=== PATIENT | male | born 1955 | race Caucasian/White ===

== ENCOUNTER 2018-04-04 11:06 | Inpatient (IN) | payer MEDICARE, OTHER ==
[~2018-04-04] VITALS: Ht 182.9 cm; Wt 94.3 kg
[2018-04-04] MEDS ORDERED: MAG HYDROX/AL HYDROX/SIMETH 30 ML UDC PO PRN (11:30)
[2018-04-04] MEDS ORDERED: ACETAMINOPHEN 325 MG TABLET PO PRN (11:30)
[2018-04-04] MEDS ORDERED: MAGNESIUM HYDROXIDE 30 ML UDC PO PRN (11:30)
[2018-04-04] MEDS ORDERED: LISD50CA2 PO (11:33)
[2018-04-04] MEDS ORDERED: GABA-536 PO (11:33)
[2018-04-04] MEDS ORDERED: MULT-24 PO (11:33)
[2018-04-04] MEDS ORDERED: ALPR2TAB7 PO (11:33)
[2018-04-04 11:52] VITALS: BP 143/89
--- NOTE | 2018-04-04 12:08 | NUR ---
GPS ADMITTING NOTE: PT 63 Y/O MALE ADMITTED FROM [facility] ON 5150 HOLD FOR DANGER TO SELF, PER HOLD PT INTENTIONAL OVERDOSE IN A SUICIDE ATTEMPT AND WAS INTUBATED. PT WAS RECENTLY GIVEN AN EVICTION NOTE BY HIS NOW EX GIRLFRIEND, PT REPORT SEVERE DEPRESSION .UPON PER FACE TO FACE ASSESSMENT PT A/O X4, AMBULATORY SELF CARE, RESTLESS, HYPERVERBAL,DENIES SI/HI AT THIS TIME NO C/O PAIN . PT HAS HX OF BIPOLAR , DYSLEXIA , ADD, DEPRESSION . PT REFUSED SKIN ASSESSMENT AND PICTURES TAKEN , BY REPORT PT HAS LACERATION ON THE BACK OF HIS HEAD , WOUND CONSUL TRIGGERED, MRSA DONE . ALL BELONGINGS AND VALUABLES CHECKED AND PLACED IN THE SAFE. PT HAS HEARING AIDS WITH HIM. WILL CONTINUE MONITORING FOR SAFETY AND BEHAVIOR Q 15 MIN.
[2018-04-04 16:00] VITALS: BP 141/90
[2018-04-04] MEDS: GABAPENTIN 300 MG CAPSULE PO SCH (17:19)
[2018-04-04] MEDS: LORAZEPAM 0.5 MG TABLET PO PRN (19:08)
--- NOTE | 2018-04-04 19:08 | NUR ---
VERBALIZED FEELING OF ANXIETY, ATIVAN 1 MG TAB PO GIVEN.
[2018-04-04 20:00] VITALS: BP 140/93
[2018-04-04] MEDS: ZOLPIDEM TARTRATE 5 MG TABLET PO PRN (21:40)
--- NOTE | 2018-04-04 21:41 | NUR ---
C/O INSOMNIA, AMBIEN 5 MG TAB 1 PO GIVEN.
[2018-04-05] MEDS: LORAZEPAM 0.5 MG TABLET PO PRN ×2 (02:20→20:46)
--- NOTE | 2018-04-05 02:20 | NUR ---
PATIENT STILL HAVING A HARD TIME TO SLEEP, ATIVAN 1 MG TAB PO GIVEN.
[2018-04-05 07:16] LABS: ALBUMIN 3.2 g/dL (3.4-5.0); BILIRUBIN,TOTAL 0.3 mg/dL (0.2-1.0); CALCIUM, SERUM 8.7 mg/dL (8.5-10.1); CREATININE 0.8 mg/dL (0.6-1.3); POTASSIUM 3.7 mmol/L (3.5-5.1); TOTAL PROTEIN, SERUM 7.3 g/dL (6.4-8.2)
[2018-04-05 08:00] VITALS: BP 154/94
[2018-04-05] MEDS: GABAPENTIN 300 MG CAPSULE PO SCH ×3 (09:43→18:09)
[2018-04-05] MEDS: ESCITALOPRAM OXALATE (10 MG) 10 MG TABLET PO SCH (09:43)
[2018-04-05 16:02] VITALS: BP 157/96
[2018-04-05 19:58] VITALS: BP 168/96
--- NOTE | 2018-04-05 20:46 | NUR ---
GPS-RN PATIENT IS ANXIOUS, RESTLESS AND PACING IN AND OUT OF HIS ROOM. ADMINISTERED ATIVAN 1MG PO ORDERED. WILL CONTINUE TO MONITOR Q15MIN FOR SAFETY AND BEHAVIOR.
[2018-04-05] MEDS: ZOLPIDEM TARTRATE 5 MG TABLET PO PRN (22:21)
[2018-04-06] MEDS: GABAPENTIN 300 MG CAPSULE PO SCH ×4 (08:31→20:02)
[2018-04-06] MEDS: ESCITALOPRAM OXALATE (10 MG) 10 MG TABLET PO SCH (08:31)
[2018-04-06 16:00] VITALS: BP 144/100
[2018-04-06] MEDS: LORAZEPAM 0.5 MG TABLET PO PRN (18:00)
--- NOTE | 2018-04-06 18:00 | NUR ---
rn note:patient medicated with ativan for anxiety will continue to monitor .
[2018-04-06 19:33] VITALS: BP 157/94
[2018-04-06] MEDS: ZOLPIDEM TARTRATE 5 MG TABLET PO PRN (21:52)
[2018-04-07] MEDS: ESCITALOPRAM OXALATE (10 MG) 10 MG TABLET PO SCH (08:06)
[2018-04-07] MEDS: LORAZEPAM 0.5 MG TABLET PO PRN (08:06)
[2018-04-07] MEDS: GABAPENTIN 300 MG CAPSULE PO SCH ×4 (08:07→21:55)
[2018-04-07 08:08] VITALS: BP 144/79
--- NOTE | 2018-04-07 10:05 | NUR ---
INITIAL DISCHARGE PLAN: Patient wishes to be discharged to his sisters Wayne's [phone] [facility] [address]. SW confirmed with Wayne who stated she would also be transporting pt home and had already scheduled follow up appointments with pts psychiatrist and appraiser real estate. SW will help form a safe and proper discharge in collaboration with .
--- NOTE | 2018-04-07 13:43 | NUR ---
WOUND CARE CONSULT: PT PRESENTS WITH AARON TO BACK OF HEAD, NO DRAINAGE OR TENDERNESS AND ALSO DRY SCAB TO RT ELBOW, PRESENT ON ADMISSION. PT IS AMBULATORY AND CONTINENT. RECOMMEND MD FOLLOWUP OF AARON. WILL SEE PRN.
[2018-04-07] MEDS: LORAZEPAM 1 MG TABLET PO PRN (14:42)
--- NOTE | 2018-04-07 14:45 | NUR ---
NURSING NOTE PT ANXIOUS, AGITATED, YELLING, REQUESTING ATIVAN PO, STATING DR. SHIPMAN CHANGED ATIVAN 1MG PO Q8H TO ATIVAN 1MG PO Q6H. CALLED DR. SHIPMAN AND GOT ORDER FOR ATIVAN 1MG PO Q6H. PT VERY AGITATED STATED HE WANTS THE ATIVAN RIGHT NOW, PER [employer] SHRAVAN SHELL TO GIVE PT ATIVAN 1MG PO (2 TABS OF 0.5MG EACH, TOTAL 1MG) BEFORE SCANNING MEDICATION. PHARMACY WAS CALLED DUE TO SYSTEM NOT ALLOWING ME TO SCAN ATIVAN 1MG (2 TABS OF 0.5MG EACH, TOTAL 1MG) UNDER NEW ORDER SINCE MEDICATION WAS PULLED UNDER OLD ORDER. PER CLOVIS FROM PHARMACY, OKAY TO PULL ANOTHER ATIVAN 1MG PO FROM Q6H ORDER AND SCAN IT. THEN I RETURNED ATIVAN 1MG (1MG WHOLE PILL) UNDER THE ATIVAN 1MG PO Q8H ORDER (2 TABS 0.5MG, TOTAL 1MG). DUE TO SYSTEM THINKING I HAD ONLY RETURNED ATIVAN 0.5MG I HAD TO RETURN ATIVAN 0.5MG A SECOND TIME BUT IT STILL KEPT SAYING I HAD TO WASTE A PARTIAL DOSE. I DID NOT WASTE ANY ATIVAN BECAUSE I ADMINISTERED THE ENTIRE ATIVAN 1MG PO DOSE. PHARMACY HAS BEEN MADE AWARE.
[2018-04-07 16:05] VITALS: BP 144/72
[2018-04-07 20:06] VITALS: BP 140/94
--- NOTE | 2018-04-07 21:40 | NUR ---
GPSOV RN NOTES TRANSFER FROM MAIN GPS THIS 63 YO/MALE.A/O X4,NO SOB,AMBULATORY,CONVERSANT,VOLUNTARY STATUS.DENIES DISCOMFORTS AT THE MOMENT.SITTER AT BEDSIDE FOR SAFETY.WILL CONTINUE TO MONITOR BEHAVIOR.
[2018-04-07] MEDS: ZOLPIDEM TARTRATE 5 MG TABLET PO PRN (22:04)
--- NOTE | 2018-04-08 03:02 | NUR ---
GPS RN NOTES RECEIVED PT SLEEPING WITH SITTER AT BEDISDE. WILL CONTINUE TO MONITOR PT.
[2018-04-08] MEDS: LORAZEPAM 1 MG TABLET PO PRN ×2 (07:21→22:27)
[2018-04-08 08:00] VITALS: BP 148/87
[2018-04-08] MEDS: GABAPENTIN 300 MG CAPSULE PO SCH ×4 (09:01→20:56)
[2018-04-08] MEDS: ESCITALOPRAM OXALATE (10 MG) 10 MG TABLET PO SCH (09:01)
[2018-04-08 16:00] VITALS: BP 141/85
[2018-04-08 20:01] VITALS: BP 148/90
[2018-04-08] MEDS: ZOLPIDEM TARTRATE 5 MG TABLET PO PRN (21:00)
[2018-04-09] MEDS: ESCITALOPRAM OXALATE (10 MG) 10 MG TABLET PO SCH (08:30)
[2018-04-09] MEDS: GABAPENTIN 300 MG CAPSULE PO SCH ×4 (08:30→20:51)
[2018-04-09 09:35] VITALS: BP 157/91
[2018-04-09] MEDS: hydrOXYzine PAMOATE 50 MG CAPSULE PO PRN ×2 (15:00→23:30)
[2018-04-09 16:03] VITALS: BP 156/95
[2018-04-09 20:00] VITALS: BP 155/87
[2018-04-09] MEDS: ZOLPIDEM TARTRATE 5 MG TABLET PO PRN (20:51)
--- NOTE | 2018-04-09 21:40 | NUR ---
AT 2050 ZOLPIDEM 5 NG TAB 1 PO GIVEN FOR SLEEP PER REQUEST.
[2018-04-09] MEDS ORDERED: hydrOXYzine PAMOATE 25 MG CAPSULE ONE (23:28)
[2018-04-10 08:00] VITALS: BP 153/88
[2018-04-10] MEDS: GABAPENTIN 300 MG CAPSULE PO SCH ×2 (08:10→12:38)
[2018-04-10] MEDS: ESCITALOPRAM OXALATE (10 MG) 10 MG TABLET PO SCH (08:10)
--- NOTE | 2018-04-10 10:13 | NUR ---
DR. SHIPMAN GAVE AN ORDER TO D/C HOLD AND D/C TO SISTER'S HOUSE AND TO FOLLOW UP WITH PSYCH AND MEDICAL DOCTORS. PT. DENIED BEING SUICIDAL AND HOMICIDAL. CHANELLE THE ORTHOTIC/PROSTHETIC CLINICIAN MADE AWARE OF THE DISCHARGE AND SAID OK FOR DISCHARGE AND HE REMOVED THE AARON. BELONGINGS READY AND DISCHARGE PAPERS. READY.
--- NOTE | 2018-04-10 13:53 | NUR ---
PT.LEFT THE UNIT WITH BELONGINGS AND WAS PICKED UP HIS SISTER STEPHAN. LEFT WITHOUT DISTRESS, AMBULATORY AND ON STABLE CONDITION. PT. INSTRUCTED ON MEDS TO CONTINUE AT HOME AND VERBALIZES UNDERSTANDING AND ADVISED TO MAKE A FOLLOW UP WITH PSYCH AND MEDICAL DOCTORS AND AGREED. PT. SIGNED THE DISCHARGE PAPERS AND PICTURES TAKEN FOR THE SKIN ISSUES. V/S TAKEN: BP 152/91, SC 67, RR 18, TEMP 98.2 AND OXYGEN SAT 92%. Addendum: 04/10/18 at 1357 by BERHANE BOONE RN PT. LEFT THE UNIT AT 1240.
--- NOTE | 2018-04-10 14:38 | NUR ---
DISCHARGE NOTE: Pt was discharged at 12:30pm to sisters home [address] [facility] [address] via private vehicle. Pts sister Wayne [phone] will be transporting pt and agrees with discharge plan. Pt denied suicidal/homicidal ideations and denied visual/auditory hallucinations. Pts mood was happy with congruent affect. SW provided pt with referral to [facility] [address] [facility] walk in hours for intake M-F 8:30 AM - 5:00 PM, [facility]: [facility] [address] [facility] walk in hours for intake M-F 9:00 AM - 5:00 PM, and [facility] [place] [address] pt was encouraged to call the 24hr Help Line for immediate substance abuse treatment. For smoking cessation, patient will be referred to the [employer] [employer] [facility] or [place] [employer] [facility] [address]-PK[facility]. Pt has a follow-up appointment with Psychiatrist: Dr. Ilan Gifford [address] [place] [address] [phone] on 04/23/18 at 5:00pm and a follow-up appointment with Skin Diving Teacher: Dr. Sam Isaacs [address] [address] [phone] on 04/14/18 at 11:00am. The multidisciplinary exitcare form was done, printed, signed, and given to the patient.
== END 2018-04-10 12:45 | disposition home or self-care (01) | DRG 885 ==
LOC: GPS 11:06 → GPSOV2 04-07 21:40 → GPS 04-08 17:47
PROVIDERS: ADMIT Psychiatry & Neurology Psychiatry; ATTEND Psychiatry & Neurology Psychiatry
DX: F31.30 Bipolar disorder, current episode depressed, mild or moderate severity, unspecified (principal); E78.5 Hyperlipidemia, unspecified; F90.9 Attention-deficit hyperactivity disorder, unspecified type; F10.10 Alcohol abuse, uncomplicated; F14.10 Cocaine abuse, uncomplicated; F15.10 Other stimulant abuse, uncomplicated; Y90.9 Presence of alcohol in blood, level not specified; Z91.5 Personal history of self-harm; Z91.14 Patient's other noncompliance with medication regimen; Z81.8 Family history of other mental and behavioral disorders; F41.9 Anxiety disorder, unspecified; F29 Unspecified psychosis not due to a substance or known physiological condition
CPT/HCPCS: 36415; 80053-TC; 80061-TC; 82962-TC; 87081-TC; Q0177